=== PATIENT | male | born 1950 | race Caucasian/White ===

== ENCOUNTER 2019-08-21 15:41 | Emergency (ER) | payer MEDICARE, BC ==
[2019-08-21] MEDS ORDERED: Sodium Chloride 0.9% 10 ML Syringe FLUSH PRN ×2 (15:54→17:22)
[2019-08-21] MEDS ORDERED: Iopamidol 755 Mg/ML 100 ML Bottle IVPUSH ONE (17:22)
[2019-08-21] MEDS ORDERED: Sodium Chloride 0.9% 100 ML IV SCH (17:30)
--- NOTE | 2019-08-21 18:07 | EDM.PDOC ---
ED HPI GENERAL MEDICAL PROBLEM - General Chief Complaint: Chest Pain Stated Complaint: CHEST PAIN Time Seen by Provider: 08/21/19 15:48 Source of Information: Reports: Patient History Limitations: Reports: No Limitations - History of Present Illness INITIAL COMMENTS - FREE TEXT/NARRATIVE: The patient presents with chest pain. This started about 6am this morning. It is like a pressure in his upper chest. He has no shortness of breath with it. Exertion does not make is worse. He moved some chairs today and that did not make it worse. He has no history of heart disease but he does have hypertension. He has fever, chills, cough, congestion or runny nose. He has no abdominal pain, nausea and vomiting. He does not smoke. He does have a history of hypertension. Onset: Gradual Duration: Hour(s): (6am) Location: Reports: Chest Quality: Reports: Pressure Severity: Mild Improves with: Reports: None Worsens with: Reports: None Associated Symptoms: Reports: Chest Pain. Denies: Cough, Fever/Chills, Headaches, Nausea/Vomiting, Shortness of Breath Middle Chest Pain Score (Numeric/FACES): 2 - Related Data Allergies Allergy/AdvReac Type Severity Reaction Status Date / Time No Known Allergies Allergy Verified 08/21/19 15:49 Home Meds: Home Meds Allopurinol [Zyloprim] 100 mg PO DAILY 08/21/19 [History] Aspirin 81 mg PO DAILY 08/21/19 [History] Cholecalciferol (Vitamin D3) [Vitamin D3] 2,000 units PO DAILY 08/21/19 [History ] Losartan/Hydrochlorothiazide [Losartan-HCTZ 100-25 MG] 1 tab PO DAILY 08/21/19 [ History] Omeprazole Magnesium [Prilosec Otc] 20 mg PO DAILY 08/21/19 [History] Pyridoxine HCl (Vitamin B6) [Vitamin B-6] 100 mg PO DAILY 08/21/19 [History] Witch Torri [Tucks] 1 pad TOP DAILY 08/21/19 [History] Past Medical History HEENT History: Reports: Impaired Vision Cardiovascular History: Reports: Hypertension Gastrointestinal History: Reports: GERD Genitourinary History: Reports: Renal Calculus Oncologic (Cancer) History: Reports: Malignant Melanoma - Infectious Disease History Infectious Disease History: Reports: Chicken Pox - Past Surgical History Cardiovascular Surgical History: Reports: Other (See Below) Other Cardiovascular Surgeries/Procedures: vein stripping bilateral legs GI Surgical History: Reports: Cholecystectomy Dermatological Surgical History: Reports: Other (See Below) Social & Family History - Family History Family Medical History: Noncontributory - Tobacco Use Smoking Status *Q: Never Smoker Second Hand Smoke Exposure: No - Caffeine Use Caffeine Use: Reports: Coffee - Recreational Drug Use Recreational Drug Use: No ED ROS GENERAL - Review of Systems Review Of Systems: See Below Constitutional: Reports: No Symptoms HEENT: Reports: No Symptoms Respiratory: Reports: No Symptoms Cardiovascular: Reports: Chest Pain Endocrine: Reports: No Symptoms GI/Abdominal: Reports: No Symptoms : Reports: No Symptoms Musculoskeletal: Reports: No Symptoms Skin: Reports: No Symptoms ED EXAM, GENERAL - Physical Exam Exam: See Below Exam Limited By: No Limitations General Appearance: Alert, No Apparent Distress Ears: Normal External Exam Nose: Normal Inspection Head: Atraumatic, Normocephalic Neck: Normal Inspection Respiratory/Chest: No Respiratory Distress, Lungs Clear, Normal Breath Sounds Cardiovascular: Regular Rate, Rhythm, No Edema, No Murmur, Other (Edema in his legs) GI/Abdominal: Soft, Non-Tender, No Organomegaly, No Mass Back Exam: Normal Inspection Extremities: Other (Edema in both legs) Neurological: Alert, Oriented, No Motor/Sensory Deficits EKG INTERPRETATION EKG Date: 08/21/19 Time: 15:46 Rhythm: NSR Rate (Beats/Min): 72 Wilmer: Normal P-Wave: Present QRS: Normal ST-T: Normal QT: Normal EKG Interpretation Comments: Q waves in the inferior and anterolateral leads Course - Vital Signs Last Recorded V/S: Last Vital Signs Temp 97.5 F 08/21/19 15:46 Pulse 79 08/21/19 15:46 Resp 18 08/21/19 15:46 BP 138/88 08/21/19 15:46 Pulse Ox 100 08/21/19 16:03 - Orders/Labs/Meds Orders: Active Orders 24 hr Category Date Time Status Cardiac Monitoring [RC] . DIRECTED Care 08/21/19 15:54 Active EKG Documentation Completion [RC] STAT Care 08/21/19 15:54 Active Influenza Vaccine Charge [RC] .DISCHARGE Care 08/21/19 16:00 Active Oxygen Therapy [RC] PRN Care 08/21/19 15:54 Active Peripheral IV Care [RC] . DIRECTED Care 08/21/19 15:55 Active Ang Chest [CT] Stat Exams 08/21/19 17:12 Taken Chest 2V [CR] Stat Exams 08/21/19 15:55 Taken TROPONIN I [CHEM] Stat Lab 08/21/19 18:26 Ordered Sodium Chloride 0.9% [Normal Saline] 100 ml Med 08/21/19 17:30 Active IV ASDIRECTED Sodium Chloride 0.9% [Saline Flush] Med 08/21/19 15:54 Active 10 ml FLUSH ASDIRECTED PRN Sodium Chloride 0.9% [Saline Flush] Med 08/21/19 17:22 Active 10 ml FLUSH ONETIME PRN Peripheral IV Insertion Adult [OM.PC] Stat Oth 08/21/19 15:54 Ordered Medication Orders Sodium Chloride (Normal Saline) 100 mls @ 60 mls/hr IV ASDIRECTED CHAR Last Admin: 08/21/19 17:45 Dose: 60 mls/hr Sodium Chloride (Saline Flush) 10 ml FLUSH ASDIRECTED PRN PRN Reason: Keep Vein Open Last Admin: 08/21/19 16:46 Dose: 10 ml Sodium Chloride (Saline Flush) 10 ml FLUSH ONETIME PRN PRN Reason: Keep Vein Open Last Admin: 08/21/19 17:45 Dose: 10 ml Labs: Laboratory Tests 08/21/19 08/21/19 08/21/19 Range/Units 16:10 16:10 16:10 WBC 7.35 (4.23-9.07) K/mm3 RBC 4.94 (4.63-6.08) M/mm3 Hgb 15.2 (13.7-17.5) gm/dl Hct 44.3 (40.1-51.0) % MCV 89.7 (79.0-92.2) fl MCH 30.8 (25.7-32.2) pg MCHC 34.3 (32.2-35.5) g/dl RDW Std Deviation 41.0 (35.1-43.9) fL Plt Count 238 (163-337) K/mm3 MPV 9.8 (9.4-12.3) fl Neut % (Auto) 64.8 (34.0-67.9) % Lymph % (Auto) 23.8 (21.8-53.1) % H[place] % (Auto) 8.6 (5.3-12.2) % Eos % (Auto) 1.9 (0.8-7.0) Baso % (Auto) 0.5 (0.1-1.2) % Neut # (Auto) 4.76 (1.78-5.38) K/mm3 Lymph # (Auto) 1.75 (1.32-3.57) K/mm3 [place] # (Auto) 0.63 (0.30-0.82) K/mm3 Eos # (Auto) 0.14 (0.04-0.54) K/mm3 Baso # (Auto) 0.04 (0.01-0.08) K/mm3 D-Dimer, Quantitative 1.19 H (0.19-0.50) mg/L Sodium 145 (136-145) mEq/L Potassium 3.3 L (3.5-5.1) mEq/L Chloride 106 (98-107) mEq/L Carbon Dioxide 32 (21-32) mEq/L Anion Gap 10.3 (5-15) BUN 23 H (7-18) mg/dL Creatinine 1.1 (0.7-1.3) mg/dL Est Cr Clr Drug Dosing 68.45 mL/min Estimated GFR (MDRD) > 60 (>60) mL/min BUN/Creatinine Ratio 20.9 H (14-18) Glucose 125 H (80-115) mg/dL Calcium 9.6 (8.5-10.1) mg/dL Total Bilirubin 0.5 (0.2-1.0) mg/dL AST 20 (15-37) U/L ALT 38 (16-63) U/L Alkaline Phosphatase 77 (46-116) U/L Troponin I < 0.017 (0.00-0.056) ng/mL Total Protein 6.8 (6.4-8.2) g/dl Albumin 3.4 (3.4-5.0) g/dl Globulin 3.4 gm/dL Albumin/Globulin Ratio 1.0 (1-2) Meds: Medications Generic Name Dose Route Start Last Admin Trade Name Freq PRN Reason Stop Dose Admin Sodium Chloride 100 mls @ 60 mls/hr 08/21/19 17:30 08/21/19 17:45 Normal Saline IV 60 mls/hr ASDIRECTED CHAR Administration Sodium Chloride 10 ml 08/21/19 15:54 08/21/19 16:46 Saline Flush FLUSH 10 ml ASDIRECTED PRN Administration Keep Vein Open Sodium Chloride 10 ml 08/21/19 17:22 08/21/19 17:45 Saline Flush FLUSH 10 ml ONETIME PRN Administration Keep Vein Open Discontinued Medications Generic Name Dose Route Start Last Admin Trade Name Paulo PRN Reason Stop Dose Admin Influenza Virus Vaccine 180 mcg 08/21/19 16:15 08/21/19 17:11 Fluzone High-Dose 2019-20 Syringe IM 08/21/19 16:16 180 mcg .ONCE ONE Administration Iopamidol 100 ml 08/21/19 17:22 08/21/19 17:45 Isovue-370 (76%) IVPUSH 08/21/19 17:23 100 ml ONETIME ONE Administration - Re-Assessments/Exams Free Text/Narrative Re-Assessment/Exam: 08/21/19 18:06 I ordered an IV saline lock, EKG, CXR and labs. He took an aspirin before arrival. His EKG shows a NSR with no acute changes. His CXR looks good. 08/21/19 18:07 His CBC is negative. His D-dimer was elevated at 1.19. His K was a little low at 3.3. His glucose was was normal 125. His troponin is negative. 08/21/19 18:26 His chest angio shows no acute findings. Bilateral nephrolithiasis. I will do a repeat troponin and discharge him home. Departure - Departure Time of Disposition: 18:25 Disposition: Home, Self-Care 01 Condition: Good Clinical Impression: Atypical chest pain Referrals: Wilbert Badillo Jr, MD [Primary Care Provider] - 1 Week Forms: ED Department Discharge Additional Instructions: Take your medication as prescribed. Follow up with your doctor within a week. Please return if you are worse. Sepsis Event Note - Evaluation Sepsis Screening Result: No Definite Risk - Focused Exam Vital Signs: Vital Signs Temp Pulse Resp BP Pulse Ox Pulse Ox 08/21/19 16:03 100 08/21/19 15:46 97.5 F 79 18 138/88 17 L Date Exam was Performed: 08/21/19 Time Exam was Performed: 18:26 - My Orders Last 24 Hours: My Active Orders 08/21/19 15:54 Cardiac Monitoring [RC] . DIRECTED EKG Documentation Completion [RC] STAT Oxygen Therapy [RC] PRN Sodium Chloride 0.9% [Saline Flush] 10 ml FLUSH ASDIRECTED PRN Peripheral IV Insertion Adult [OM.PC] Stat 08/21/19 15:55 Peripheral IV Care [RC] . DIRECTED Chest 2V [CR] Stat 08/21/19 16:00 Influenza Vaccine Charge [RC] .DISCHARGE 08/21/19 17:12 Ang Chest [CT] Stat 08/21/19 17:22 Sodium Chloride 0.9% [Saline Flush] 10 ml FLUSH ONETIME PRN 08/21/19 17:30 Sodium Chloride 0.9% [Normal Saline] 100 ml IV ASDIRECTED 08/21/19 18:26 TROPONIN I [CHEM] Stat - Assessment/Plan Last 24 Hours: My Active Orders 08/21/19 15:54 Cardiac Monitoring [RC] . DIRECTED EKG Documentation Completion [RC] STAT Oxygen Therapy [RC] PRN Sodium Chloride 0.9% [Saline Flush] 10 ml FLUSH ASDIRECTED PRN Peripheral IV Insertion Adult [OM.PC] Stat 08/21/19 15:55 Peripheral IV Care [RC] . DIRECTED Chest 2V [CR] Stat 08/21/19 16:00 Influenza Vaccine Charge [RC] .DISCHARGE 08/21/19 17:12 Ang Chest [CT] Stat 08/21/19 17:22 Sodium Chloride 0.9% [Saline Flush] 10 ml FLUSH ONETIME PRN 08/21/19 17:30 Sodium Chloride 0.9% [Normal Saline] 100 ml IV ASDIRECTED 08/21/19 18:26 TROPONIN I [CHEM] Stat
--- NOTE | 2019-08-22 10:33 | CR ---
Chest: Two views of the chest were obtained. Comparison: No prior chest imaging. Heart size and mediastinum are within normal limits. Lungs are clear with no acute parenchymal change. Slight compression deformity is noted within the lower thoracic spine. Mild degenerative change is scattered within the thoracic spine. Impression: 1. Findings as noted above. 2. Nothing acute is appreciated on two-view chest x-ray. Diagnostic code #2 This report was dictated in [place] Standard Time
--- NOTE | 2019-08-22 10:38 | CT ---
CT chest Technique: Multiple axial sections through the chest were obtained. Intravenous contrast was utilized. Study was performed as a pulmonary angiogram protocol. Comparison: No prior chest CT is available, chest x-ray performed earlier on the same day is available (4:47 PM). Findings: No findings of pulmonary embolism are seen. Slight atherosclerotic calcification is noted within the thoracic aorta. Aorta shows no aneurysm. Mediastinum and hilar regions show no adenopathy. No axillary adenopathy is identified. Multiple calcifications seen within both kidneys compatible with nonobstructing calculi. Small cysts are noted within both kidneys. Previous cholecystectomy is noted. Lungs are clear with no acute parenchymal change. Impression: 1. Bilateral nonobstructing renal calculi. Other findings as noted above. 2. No findings of pulmonary embolism. No acute finding is appreciated. Diagnostic code #2 This report was dictated in [place] Standard Time I agree with preliminary report issued by [facility] ([facility] report finalized on 08/21/19, 7:02 PM Central Time)
== END 2019-08-21 18:57 | disposition home or self-care (01) ==
LOC: JD.ED 15:41
DX: R07.89 Other chest pain (principal); I10 Essential (primary) hypertension; K21.9 Gastro-esophageal reflux disease without esophagitis; Z79.82 Long term (current) use of aspirin; Z79.899 Other long term (current) drug therapy
CPT/HCPCS: 36415; 71046; 71275; 80053; 84484; 85025; 85379; 90662; 93005; 99285; G0008; J7050; Q9967; 93010; 99284

== ENCOUNTER 2020-09-12 08:41 | Emergency (ER) | payer MEDICARE, BC ==
[2020-09-12] MEDS ORDERED: diphenhydrAMINE 50 MG/ML SDV IVPUSH PRN (09:04)
[2020-09-12] MEDS ORDERED: methylPREDNISolone Sodium Succinate 125 MG/2 ML SDV IVPUSH PRN (09:04)
[2020-09-12] MEDS ORDERED: Casirivimab 1,200 MG, Imdevimab 1,200 MG in Sodium Chloride 0.9% 230 ML IV ONE ×2 (09:04→09:30)
[2020-09-12] MEDS ORDERED: Famotidine 20 MG/2 ML SDV IVPUSH PRN (09:04)
[2020-09-12] MEDS ORDERED: EPINEPHrine 1 MG/ML SDV IM PRN (09:04)
[2020-09-12] MEDS ORDERED: Sodium Chloride 0.9% 10 ML Syringe FLUSH SCH (09:15)
--- NOTE | 2020-09-12 09:36 | EDM.PDOC ---
ED HPI GENERAL MEDICAL PROBLEM - General Chief Complaint: Respiratory Problem Stated Complaint: COVID+/ HERE FOR ANTIBODIES Time Seen by Provider: 09/12/20 08:52 Source of Information: Reports: Patient History Limitations: Reports: No Limitations, Other (Vital signs in the emergency department temp 97.0, pulse 82, respiratory rate 16, blood pressure 138/71, pulse ox 98% on room air) - History of Present Illness INITIAL COMMENTS - FREE TEXT/NARRATIVE: Patient presents to the emergency department with complaints of Covid symptoms and a positive test 3 days ago. Patient is requesting antibodies for the Covid. He states he started having symptoms 6 days ago that he described as having a runny nose, sore throat, and body aches. He does have a history of hypertension, and he is obese with a BMI of 35.9. Onset: Gradual - Related Data Allergies Allergy/AdvReac Type Severity Reaction Status Date / Time No Known Allergies Allergy Verified 09/12/20 08:54 Home Meds: Home Meds Allopurinol [Zyloprim] 100 mg PO DAILY 08/21/19 [History] Cholecalciferol (Vitamin D3) [Vitamin D3] 2,000 units PO DAILY 08/21/19 [History] Losartan/Hydrochlorothiazide [Losartan-HCTZ 100-25 MG] 1 tab PO DAILY 08/21/19 [History] Omeprazole Magnesium [Prilosec Otc] 20 mg PO DAILY 08/21/19 [History] Pyridoxine HCl (Vitamin B6) [Vitamin B-6] 100 mg PO DAILY 08/21/19 [History] Past Medical History HEENT History: Reports: Impaired Vision Cardiovascular History: Reports: Hypertension Gastrointestinal History: Reports: GERD Genitourinary History: Reports: Renal Calculus Endocrine/Metabolic History: Reports: Vitamin D Deficiency Oncologic (Cancer) History: Reports: Malignant Melanoma - Infectious Disease History Infectious Disease History: Reports: Chicken Pox, Novel Coronavirus - Past Surgical History Cardiovascular Surgical History: Reports: Varicose GI Surgical History: Reports: Cholecystectomy Male Surgical History: Reports: Lithotripsy ([facility]) Dermatological Surgical History: Reports: Other (See Below) Social & Family History - Family History Family Medical History: No Pertinent Family History - Tobacco Use Tobacco Use Status *Q: Never Tobacco User - Caffeine Use Caffeine Use: Reports: Coffee - Recreational Drug Use Recreational Drug Use: No ED ROS GENERAL - Review of Systems Review Of Systems: See Below Constitutional: Reports: No Symptoms HEENT: Reports: Rhinitis, Throat Pain Respiratory: Reports: No Symptoms. Denies: Shortness of Breath, Cough, Sputum Cardiovascular: Reports: No Symptoms. Denies: Chest Pain, Dyspnea on Exertion Endocrine: Reports: No Symptoms GI/Abdominal: Reports: No Symptoms : Reports: No Symptoms Musculoskeletal: Reports: No Symptoms Skin: Reports: No Symptoms Neurological: Reports: No Symptoms Psychiatric: Reports: No Symptoms Hematologic/Lymphatic: Reports: No Symptoms Immunologic: Reports: No Symptoms ED EXAM, GENERAL - Physical Exam Exam: See Below Exam Limited By: No Limitations General Appearance: Alert, WD/WN, No Apparent Distress Eye Exam: Bilateral Eye: PERRL Ears: Normal External Exam, Hearing Grossly Normal Nose: Normal Inspection Throat/Mouth: Normal Inspection, Normal Voice, No Airway Compromise Head: Atraumatic, Normocephalic Neck: Normal Inspection, Supple, Non-Tender, Full Range of Motion Respiratory/Chest: No Respiratory Distress, Lungs Clear, Normal Breath Sounds, No Accessory Muscle Use, Chest Non-Tender Cardiovascular: Normal Peripheral Pulses, Regular Rate, Rhythm, No Edema, No Murmur Peripheral Pulses: 2+: Radial (L), Radial (R) GI/Abdominal: Normal Bowel Sounds, Soft, Non-Tender, No Distention (Male) Exam: Deferred Rectal (Males) Exam: Deferred Back Exam: Normal Inspection, Full Range of Motion Extremities: Normal Inspection, Normal Range of Motion, Non-Tender, No Pedal Edema, Normal Capillary Refill Neurological: Alert, Oriented, Normal Cognition Psychiatric: Normal Affect, Normal Mood Skin Exam: Warm, Dry, Intact, Normal Color, No Rash Lymphatic: No Adenopathy Course - Vital Signs Text/Narrative:: 70-year-old male with a positive Covid test 3 days ago. Covid symptoms are mild runny nose, body aches, and a sore throat however he would be a good candidate for antiviral therapy. He has a history of hypertension, he is 70 years old, and his BMI is 35.9. He is agreeable to this. I spoke with the patient to provide information about Regeneron treatment for himself. I spoke and offered him the patient and caregiver ANTHON[facility] Regeneron fax sheet to read and review. I stated that the drug has been approved by an emergency use authorization process and has not fully been FDA reviewed or approved. The patient meets the EUA requirements. I discussed there are other potential treatment options that are currently not FDA approved to treat COVID-19. Offered opportunity ask questions and all questions were answered. The patient voiced understanding and agreed to proceed with the treatment for himself. I have ordered Regeneron. Last Recorded V/S: Last Vital Signs Temp 97.0 F 09/12/20 08:51 Pulse 82 09/12/20 08:51 Resp 16 09/12/20 08:51 BP 159/75 H 09/12/20 09:34 Pulse Ox 99 09/12/20 09:34 - Orders/Labs/Meds Orders: Active Orders 24 hr Category Date Time Status Vital Signs [RC] Q15M Care 09/12/20 09:04 Active EPINEPHrine [Adrenalin] Med 09/12/20 09:04 Active 0.3 mg IM ONETIME PRN Famotidine [Pepcid] Med 09/12/20 09:04 Active 20 mg IVPUSH ONETIME PRN Sodium Chloride 0.9% [Saline Flush] Med 09/12/20 09:15 Active 30 ml FLUSH ASDIRECTED diphenhydrAMINE [Benadryl] Med 09/12/20 09:04 Active 50 mg IVPUSH ONETIME PRN methylPREDNISolone Sod Succ [Solu-MEDROL] Med 09/12/20 09:04 Active 125 mg IVPUSH ONETIME PRN Medication Orders Diphenhydramine HCl (Benadryl) 50 mg IVPUSH ONETIME PRN PRN Reason: hypersensitivity reaction Epinephrine HCl (Adrenalin) 0.3 mg IM ONETIME PRN PRN Reason: hypersensitivity reaction Famotidine (Pepcid) 20 mg IVPUSH ONETIME PRN PRN Reason: hypersensitivity reaction Methylprednisolone Sodium Succinate (Solu-Medrol) 125 mg IVPUSH ONETIME PRN PRN Reason: hypersensitivity reaction Sodium Chloride (Saline Flush) 30 ml FLUSH ASDIRECTED CHAR Last Admin: 09/12/20 10:50 Dose: 30 ml Documented by: JAYCE Meds: Medications Generic Name Dose Route Start Last Admin Trade Name Freq PRN Reason Stop Dose Admin Diphenhydramine HCl 50 mg 09/12/20 09:04 Benadryl IVPUSH ONETIME PRN hypersensitivity reaction Epinephrine HCl 0.3 mg 01/21/21 09:04 Adrenalin IM ONETIME PRN hypersensitivity reaction Famotidine 20 mg 09/12/20 09:04 Pepcid IVPUSH ONETIME PRN hypersensitivity reaction Methylprednisolone Sodium Succinate 125 mg 09/12/20 09:04 Solu-Medrol IVPUSH ONETIME PRN hypersensitivity reaction Sodium Chloride 30 ml 09/12/20 09:15 09/12/20 10:50 Saline Flush FLUSH 30 ml ASDIRECTED CHAR Administration Discontinued Medications Generic Name Dose Route Start Last Admin Trade Name Freq PRN Reason Stop Dose Admin Non-Formulary Medication 1,200 250 mls @ 250 mls/hr 09/12/20 09:04 mg/ Non-Formulary Medication IV 09/12/20 10:03 1,200 mg/ Sodium Chloride ONETIME ONE Non-Formulary Medication 1,200 250 mls @ 250 mls/hr 09/12/20 09:30 09/12/20 09:42 mg/ Non-Formulary Medication IV 09/12/20 10:29 250 mls/hr 1,200 mg/ Sodium Chloride ONETIME ONE Administration - Re-Assessments/Exams Free Text/Narrative Re-Assessment/Exam: 09/12/20 1050 Patient completed Regeneron infusion. Tolerated well. No signs or symptoms of allergic reaction type response noted. We will monitor him in the emergency department and then allow him to be discharged home. Departure - Departure Time of Disposition: 12:00 Disposition: Home, Self-Care 01 Condition: Fair Clinical Impression: COVID-19 determined by clinical diagnostic criteria - Discharge Information Instructions: COVID-19 Frequently Asked Questions, What You Should Know About COVID-19 to Protect Yourself and Others - CDC, Prevent the Spread of COVID-19 if You Are Sick - [facility] [place] Referrals: Wilbert Badillo Jr, MD [Primary Care Provider] - Forms: ED Department Discharge Additional Instructions: You were seen in the emergency department with signs and sympoms related to COVID. It was found that you met criteria for antibody treatment and you were given Regeneron. You tolerated this well. As we spoke, this is only supposed to shorten the duration and severity of COVID. Resume quarantine as previously recommended by the state. Should your condition worsen or change, please return to the emergency department. Sepsis Event Note (ED) - Evaluation Sepsis Screening Result: No Definite Risk - Focused Exam Vital Signs: Vital Signs Temp Pulse Resp BP Pulse Ox 09/12/20 09:34 159/75 H 99 09/12/20 08:51 97.0 F 82 16 178/71 H 98 - My Orders Last 24 Hours: My Active Orders 09/12/20 09:04 Vital Signs [RC] Q15M EPINEPHrine [Adrenalin] 0.3 mg IM ONETIME PRN Famotidine [Pepcid] 20 mg IVPUSH ONETIME PRN diphenhydrAMINE [Benadryl] 50 mg IVPUSH ONETIME PRN methylPREDNISolone Sod Succ [Solu-MEDROL] 125 mg IVPUSH ONETIME PRN 09/12/20 09:15 Sodium Chloride 0.9% [Saline Flush] 30 ml FLUSH ASDIRECTED - Assessment/Plan Last 24 Hours: My Active Orders 09/12/20 09:04 Vital Signs [RC] Q15M EPINEPHrine [Adrenalin] 0.3 mg IM ONETIME PRN Famotidine [Pepcid] 20 mg IVPUSH ONETIME PRN diphenhydrAMINE [Benadryl] 50 mg IVPUSH ONETIME PRN methylPREDNISolone Sod Succ [Solu-MEDROL] 125 mg IVPUSH ONETIME PRN 09/12/20 09:15 Sodium Chloride 0.9% [Saline Flush] 30 ml FLUSH ASDIRECTED
== END 2020-09-12 12:00 | disposition home or self-care (01) ==
LOC: JD.ED 08:41
DX: U07.1 COVID-19 (principal); I10 Essential (primary) hypertension; K21.9 Gastro-esophageal reflux disease without esophagitis; Z79.899 Other long term (current) drug therapy
CPT/HCPCS: 99283; J7050; M0243; Q0243; 99284

== ENCOUNTER 2023-09-02 07:05 | Day surgery (SDC) | payer BC, MEDICARE, OTHER ==
[~2023-09-02 07:05] MED LIST: Lactated Ringers 1,000 ML IV SCH; Sodium Chloride 0.9% 10 ML Syringe FLUSH PRN; Sodium Chloride 0.9% 10 ML Syringe FLUSH SCH
[2023-09-02] MEDS ORDERED: Propofol 200 MG/20 ML SDV ONE ×2 (07:09→08:08)
[2023-09-02] MEDS ORDERED: Lidocaine 1% 4 ML ONE (07:10)
[2023-09-02] MEDS ORDERED: Midazolam 1 MG/ML 2 ML SDV ONE (08:02)
[2023-09-02] MEDS ORDERED: Sodium Chloride 0.9% 10 ML Syringe FLUSH PRN (08:07)
[2023-09-02] MEDS ORDERED: Lactated Ringers 1,000 ML IV SCH (08:15)
[2023-09-02] MEDS ORDERED: Sodium Chloride 0.9% 10 ML Syringe FLUSH SCH (09:00)
== END 2023-09-02 09:15 | disposition home or self-care (01) ==
LOC: JD.SDS 07:05
PROVIDERS: ATTEND Specialist
DX: Z12.11 Encounter for screening for malignant neoplasm of colon (principal); I12.9 Hypertensive chronic kidney disease with stage 1 through stage 4 chronic kidney disease, or unspecified chronic kidney disease; N18.30 Chronic kidney disease, stage 3 unspecified; E11.22 Type 2 diabetes mellitus with diabetic chronic kidney disease; G47.30 Sleep apnea, unspecified; E78.5 Hyperlipidemia, unspecified; K21.9 Gastro-esophageal reflux disease without esophagitis; Z79.899 Other long term (current) drug therapy; Z79.84 Long term (current) use of oral hypoglycemic drugs; Z98.890 Other specified postprocedural states; Z88.8 Allergy status to other drugs, medicaments and biological substances
CPT/HCPCS: 45378; 82947; J2250; J2704; J7120; J3490